=== PATIENT | male | born 1950 | race Caucasian/White ===

== ENCOUNTER 2016-12-04 21:11 | Emergency (ER) | payer OTHER ==
[~2016-12-04] VITALS: Ht 180.3 cm; Wt 86.2 kg
[2016-12-04 21:12] VITALS: BP 138/86
[2016-12-04] MEDS ORDERED: ASPI81TA85 PO (21:21)
[2016-12-04] MEDS ORDERED: RAMI10CA PO (21:21)
[2016-12-04] MEDS ORDERED: METF500T PO (21:21)
[2016-12-04] MEDS ORDERED: ATOR40TA PO (21:21)
== END 2016-12-05 01:21 | disposition left against medical advice (07) ==
LOC: M ED 23:32
DX: R10.9 Unspecified abdominal pain (principal); Z53.21 Procedure and treatment not carried out due to patient leaving prior to being seen by health care provider

== ENCOUNTER → 2019-10-28 | Outpatient (CLI) | payer MEDICARE, OTHER ==
[~2019-10-28] MED LIST: ASPI81TA85 PO; ATOR40TA75 PO; METF500T13 PO; RAMI1CAP26 PO
--- NOTE | 2019-10-28 17:10 | REP ---
Chest x-ray: Three views. History: Hypertension. Anxiety. Comparison chest x-ray: March 22, 2013. Findings: The lungs are hyperinflated consistent with COPD. There is a horizontally oriented band of parenchymal opacity in the right upper lobe anterior segment consistent with infiltrate and/or atelectasis with fibrosis. There is radiolucency in the right upper lobe with oligemia. No definite hilar enlargement is seen. The thoracic aorta is tortuous and calcific. The heart is not enlarged. Left lung is clear. The pleural angles are sharp. No bony abnormalities seen. Impression: Large horizontal band-like density in the anterior segment of the right upper lobe consistent with atelectasis and/or infiltrate versus fibrosis. New from the prior study. No definite hilar or mediastinal mass. Consider chest CT scanning. Preferably with IV contrast. Electronically Signed by Ishmael Araujo MD 10/28/2019 06:57 P
[2019-10-28 20:06] LABS: BASO # 0.1 10^3/uL (0.0-0.2); BASO % 0.7 % (0.0-1.0); EOS # 0.1 10^3/uL (0.0-0.5); EOS % 1.1 % (0.0-3.0); HEMATOCRIT 45.9 % (42.0-52.0); HEMOGLOBIN 14.8 g/dl (13.5-17.5); LYMPH # 2.1 10^3/uL (1.5-5.0); LYMPH % 25.6 % (24.0-44.0); MEAN CORPUSCULAR HGB CONC 32.2 g/dl (32.0-36.5); MEAN CORPUSCULAR VOLUME 102.5 fl (80.0-96.0); MONO # 0.4 10^3/uL (0.0-0.8); MONO % 4.7 % (0.0-5.0); NEUTROPHILS # 5.5 10^3/uL (1.5-8.5); NEUTROPHILS % 67.7 % (36.0-66.0); PLATELET COUNT, AUTOMATED 359 10^3/uL (150-450); RED BLOOD COUNT 4.48 10^6/uL (4.30-6.10); WHITE BLOOD COUNT 8.1 10^3/uL (4.0-10.0)
[2019-10-28 20:14] LABS: ALBUMIN 3.7 GM/DL (3.2-5.2); ALT/SGPT 42 U/L (12-78); BILIRUBIN,TOTAL 0.2 MG/DL (0.2-1.0); BLOOD UREA NITROGEN 9 MG/DL (7-18); C REACTIVE PROTEIN QUANTITATIV 0.65 MG/DL (0.00-0.30); CARBON DIOXIDE LEVEL 30 MEQ/L (21-32); CHLORIDE LEVEL 105 MEQ/L (98-107); CK-MB VALUE MASS < 1.0 NG/ML (<3.6); CPK CREATINE PHOSPHOKINASE 37 U/L (39-308); CREATININE FOR GFR 0.82 MG/DL (0.70-1.30); FREE T4 1.21 NG/DL (0.76-1.46); GLOMERULAR FILTRATION RATE > 60.0 (>49); GLUCOSE, FASTING 100 MG/DL (70-100); POTASSIUM SERUM 5.1 MEQ/L (3.5-5.1); SODIUM LEVEL 139 MEQ/L (136-145); TOTAL PROTEIN 7.3 GM/DL (6.4-8.2); TROPONIN I < 0.02 NG/ML (< 0.10)
[2019-10-28 20:24] LABS: HEMOGLOBIN A1c 6.9 %
== END ==
LOC: M WUC 15:27
PROVIDERS: ATTEND Physician Assistant
DX: F41.9 Anxiety disorder, unspecified (principal); I10 Essential (primary) hypertension

== ENCOUNTER → 2019-11-03 | Outpatient (CLI) | payer MEDICARE, OTHER ==
--- NOTE | 2019-11-03 19:28 | REP ---
CT chest without contrast: History: Abnormal chest x-ray. Hypertension. Comparison chest x-ray October 28, 2019 and March 22, 2013. Findings: The lungs are hyperinflated consistent with COPD. The left lung is clear. There is a nonsolid nodular density in the lingula at the left base adjacent to the base of the major fissure. This measures 6 mm in greatest diameter. It is visible on page 91 of 127 in series 201 of today's study. No other nodular density is seen in the left lung. There is patchy consolidation and volume loss in the anterior segment of the right upper lobe. There is some patchy consolidation on the other side of the minor fissure in the right middle lobe superiorly. There are air bronchograms and some surrounding consolidation. There are areas of inspissated endobronchial material and the right upper lobe bronchus and proximal segmental right upper lobe bronchi are occluded abruptly by a somewhat nodular density. This is less than optimally seen in the absence of IV contrast but I suspect an endobronchial lesion, possibly a endobronchial mass lesion. The right upper lobe bronchi are filled with inspissated endobronchial material well into the upper portion of the right upper lobe. There are scattered normal-sized mediastinal lymph nodes. No definite mediastinal adenopathy. Vascular calcifications noted including left coronary artery vascular calcification and right coronary artery vascular calcification. There are two tiny sub-centimeter cysts in the left lobe of the liver. No adrenal lesion is seen. Spleen is unremarkable. No bony destructive lesion is seen. Impression: Central bronchial lesion right upper lobe bronchus suspected with postobstructive atelectasis and infiltrate in the right upper lobe. Endobronchial neoplasm and malignancy must be suspected. Consider bronchoscopic and possibly histologic correlation. Electronically Signed by Ishmael Araujo MD 11/03/2019 07:49 P
== END ==
LOC: M RAD 18:12
PROVIDERS: ATTEND Physician Assistant
DX: I10 Essential (primary) hypertension (principal)

== ENCOUNTER → 2020-02-01 | Outpatient (CLI) | payer MEDICARE, OTHER ==
--- NOTE | 2020-02-01 16:09 | REP ---
Three views chest: 02/01/2020. Comparison: CT chest dated 11/03/2019 and chest x-ray dated 10/28/2019. Findings: There is persistent, yet slightly less conspicuous, opacity within the right upper lobe as previously described. No new lung parenchymal opacities are present. There is no evidence of pleural effusion or pneumothorax. Aortic tortuosity is noted. The cardiac silhouette is not enlarged. Impression: Less conspicuous opacity within the right lung. Please see previous chest CT recommendation. Electronically Signed by Behzad Boyd DO 02/01/2020 04:01 P
== END ==
LOC: M WUC 14:58
PROVIDERS: ATTEND Internal Medicine Pulmonary Disease
DX: J44.9 Chronic obstructive pulmonary disease, unspecified (principal)

== ENCOUNTER → 2020-03-14 | Outpatient (CLI) | payer MEDICARE, OTHER ==
[~2020-03-14] MED LIST changes: -ASPI81TA85 PO; +ASPI81TA86 PO
--- NOTE | 2020-03-14 10:20 | REP ---
Clinical: Follow up abnormal lung findings. Comparison: 11/03/2019. Technique: Axial noncontrast images from the thoracic inlet to the upper abdomen with coronal and sagittal re-formations. Findings: Areas of consolidation with air bronchograms and subtle reticulonodular interstitial changes involving the right upper lobe are again identified but appear improved as compared to prior examination. The trachea and bronchi are patent. There is mild chronic-appearing bronchiectasis involving the left lower lobe along with a very subtle area of reticulonodular airspace disease representing a new finding as compared to prior exam. No further areas of consolidation, nodule or mass lesion. No effusion. No pneumothorax. No significant adenopathy. Mediastinum demonstrates stable atherosclerotic changes to the thoracic aorta and coronary arteries without significant aneurysm or cardiomegaly. No pericardial effusion. Musculoskeletal structures are intact. Limited upper abdomen demonstrates normal bilateral adrenal glands. Impression: 1. Area of consolidation and subtle reticulonodular interstitial changes in the right upper lobe are improved as compared to prior examination. 2. Very subtle area of airspace disease at the left base is now identified. Electronically Signed by Pramod Su MD 03/14/2020 10:12 A
== END ==
LOC: M RAD 09:10
PROVIDERS: ATTEND Internal Medicine Pulmonary Disease
DX: R91.8 Other nonspecific abnormal finding of lung field (principal)

== ENCOUNTER → 2020-11-19 | Outpatient (CLI) | payer MEDICARE, OTHER ==
--- NOTE | 2020-11-19 13:50 | REP ---
INDICATION: OTHER NON SPECIFIC ABNORMAL FINDING OF LUNG FIELD COMPARISON: 03/14/2020, 11/03/2019 TECHNIQUE: Axial noncontrast images from the thoracic inlet to the upper abdomen with coronal and sagittal reformations. This CT examination was performed using the following dose reduction techniques: Automated exposure control, adjustment of mA and/or kv according to the patient's size, and use of iterative reconstruction technique. FINDINGS: While the bilateral lung cole demonstrate improved aeration with decreased areas of airspace disease, there is suggestions for mild mediastinal adenopathy and possible suspicious right hilar mass. Findings are poorly evaluated due to the lack of contrast and adjacent vasculature. The lung cole demonstrate chronic interstitial changes and bronchiectasis. No acute consolidation, effusion, or pneumothorax identified. The tracheobronchial tree appears patent. Atherosclerotic changes to the thoracic aorta and coronary arteries along with ectatic appearance to the ascending thoracic aorta again noted. No cardiomegaly or pericardial effusion identified. IMPRESSION: 1. Lung cole demonstrate chronic interstitial changes and mild chronic bronchiectasis. The previously noted scattered infiltrates have resolved and there is no new acute consolidation or effusion. 2. A right hilar mass lesion cannot be excluded and evaluation is limited due to the lack of contrast and adjacent vascular structures. Contrast-enhanced chest CT is recommended for further investigation. <Electronically signed by Pramod Su > 11/19/20 [id number]
== END ==
LOC: M RAD 12:28
PROVIDERS: ATTEND Internal Medicine Pulmonary Disease
DX: R91.8 Other nonspecific abnormal finding of lung field (principal)

== ENCOUNTER → 2022-04-09 | Outpatient (CLI) | payer MEDICARE, OTHER ==
[2022-04-09 17:33] LABS: HEMATOCRIT 43.9 % (42.0-52.0); MEAN CORPUSCULAR HEMOGLOBIN 32.6 pg (27.0-33.0); MEAN CORPUSCULAR HGB CONC 31.9 g/dl (32.0-36.5); MEAN CORPUSCULAR VOLUME 102.3 fl (80.0-96.0); PLATELET COUNT, AUTOMATED 244 10^3/uL (150-450); RED BLOOD COUNT 4.29 10^6/uL (4.30-6.10); WHITE BLOOD COUNT 8.7 10^3/uL (4.0-10.0)
[2022-04-09 18:30] LABS: ALBUMIN 3.4 GM/DL (3.2-5.2); ALT/SGPT 14 U/L (12-78); BILIRUBIN,TOTAL 0.3 MG/DL (0.2-1.0); BLOOD UREA NITROGEN 16 MG/DL (7-18); CALCIUM LEVEL 8.8 MG/DL (8.8-10.2); CARBON DIOXIDE LEVEL 26 MEQ/L (21-32); CHLORIDE LEVEL 109 MEQ/L (98-107); CHOLESTEROL LEVEL 190 MG/DL (<200); CHOLESTEROL RISK RATIO 5.428 (<5); CREATININE FOR GFR 0.93 MG/DL (0.70-1.30); GLOMERULAR FILTRATION RATE > 60.0 (>49); GLUCOSE, FASTING 111 MG/DL (70-100); HDL CHOLESTEROL 35 MG/DL (>40); LDL CHOLESTEROL 133 MG/DL (<100); MAGNESIUM LEVEL 2.2 MG/DL (1.8-2.4); NON-HDL-C 155 MG/DL; SODIUM LEVEL 140 MEQ/L (136-145); TRIGLYCERIDES LEVEL 112 MG/DL (<150)
== END ==
LOC: M WUC 14:07
PROVIDERS: ATTEND Physician Assistant
DX: I25.10 Atherosclerotic heart disease of native coronary artery without angina pectoris (principal)

== ENCOUNTER 2022-10-22 20:09 | Emergency (ER) | payer MEDICARE, OTHER ==
[~2022-10-22] VITALS: Ht 177.8 cm; Wt 77.3 kg
[2022-10-22 20:28] VITALS: BP 157/88
== END 2022-10-23 01:46 | disposition left against medical advice (07) ==
LOC: M ED 20:09 → EDBD 20:09 → M ED 10-23 01:46
DX: Z53.21 Procedure and treatment not carried out due to patient leaving prior to being seen by health care provider (principal)